=== PATIENT | male | born 1960 | race Caucasian/White ===

== ENCOUNTER 2017-06-25 14:07 | Emergency (ER) | payer SELFPAY ==
[2017-06-25 14:21] VITALS: BP 168/106
--- NOTE | 2017-06-25 15:08 | ER Document Report ---
ED Medical Screen (RME) - General Chief Complaint: Flu Symptoms Stated Complaint: WEAKNESS Time Seen by Provider: 06/25/17 14:56 Mode of Arrival: Ambulatory Information source: Patient - pt states he feels very weak. Denies CP, N,V TRAVEL OUTSIDE OF THE [place] IN LAST 30 DAYS: No - Related Data Allergies/Adverse Reactions: No Known Allergies Allergy (Verified 06/19/15 03:35) Past Medical History - Social History Chew tobacco use (# tins/day): No Frequency of alcohol use: None Drug Abuse: None - Past Medical History Cardiac Medical History: Reports: Hx Hypertension Endocrine Medical History: Reports: Hx Diabetes Mellitus Type 2 Renal/ Medical History: Denies: Hx Peritoneal Dialysis Past Surgical History: Reports: Hx Appendectomy - Immunizations Hx Diphtheria, Pertussis, Tetanus Vaccination: Yes Physical Exam - Vital signs Vitals: Temp Pulse Resp BP Pulse Ox 98.4 F 107 H 16 168/106 H 98 06/25/17 14:20 06/25/17 14:20 06/25/17 14:20 06/25/17 14:20 06/25/17 14:20 Course - Vital Signs Vital signs: Temp Pulse Resp BP Pulse Ox 98.4 F 107 H 16 168/106 H 98 06/25/17 14:20 06/25/17 14:20 06/25/17 14:20 06/25/17 14:20 06/25/17 14:20
== END 2017-06-25 16:28 | disposition left against medical advice (07) ==
LOC: ER 14:07
DX: Z53.21 Procedure and treatment not carried out due to patient leaving prior to being seen by health care provider (principal); R53.1 Weakness
CPT/HCPCS: 99281

== ENCOUNTER 2018-03-25 20:16 | Emergency (ER) | payer SELFPAY ==
--- NOTE | 2018-03-25 20:39 | ER Document Report ---
ED General - General Stated Complaint: POSSIBLE BLOOD SUGAR ISSUE Time Seen by Provider: 03/25/18 20:38 Notes: Patient is a 57-year-old male that presents to the emergency department for chief complaint of high blood sugar, and passing out. Patient states that he was drinking this evening, and had passed out, and his girlfriend called EMS. He states he has been feeling lightheaded, denies having any head injury. He thinks this is all related to his blood sugars being out of control, he has not had his medications, he states that some of the dumped them out, he is not sure who. Patient is a poor historian, and is currently visibly intoxicated. He states he takes metformin, as well as lisinopril. He is not currently on insulin. He also complains of having some numbness in his hand, that has been present for approximately 1 month, as well as in his leg, which he states is on the outside which has been there for several months. He denies having any pain associated with this. Denies any facial droop, slurred speech. These appear to be chronic things, but he wanted to mention them during his visit. He denies having any recent fevers, chills, night sweats, chest pain, polyuria, polydipsia, nausea, vomiting or abdominal pain. Past Medical History: Diabetes mellitus, osteoarthritis, hypertension Past Surgical History: Denies major surgical history Social History: Admits to smoking cigarettes daily, states that he has been off of alcohol for some time, but decided to drink this evening, denies illicit drug use. Family History: Reviewed and noncontributory for presenting illness Allergies: Reviewed, see documented allergy list. REVIEW OF SYSTEMS: Other than noted above, the 12 point review of systems was reviewed with the patient and were negative, all pertinent findings are included in the HPI. PHYSICAL EXAMINATION: Vital signs reviewed, nursing noted reviewed. GENERAL: Patient is visibly intoxicated, but cooperative HEAD: Atraumatic, normocephalic. EYES: Eyes appear normal, extraocular movements intact, sclera anicteric, conjunctiva are normal. ENT: nares patent, oropharynx clear without exudates. Moist mucous membranes. NECK: Normal range of motion, supple without lymphadenopathy LUNGS: Breath sounds clear to auscultation bilaterally and equal. No wheezes rales or rhonchi. HEART: Regular rate and rhythm without murmurs ABDOMEN: Soft, nontender, normoactive bowel sounds. No rebound, guarding, or rigidity. No masses appreciated. EXTREMITIES: Nontender, good range of motion, no pitting or edema. NEUROLOGICAL: Moves all extremities spontaneously Motor and sensory grossly intact on exam. Reflexes intact in the lower extremities in the patellar and Achilles tendon, +2/4 bilaterally and equal. Sensation tested, with sharp touch , and equal bilaterally, there is some subjective decreased sensation on the outside of the left leg compared to the right, with light touch, but has the same sensation and equal bilaterally in the medial aspects of the lower extremities. There is no sensation discrepancies in the upper extremities. PSYCH: Normal mood, normal affect. SKIN: Warm, Dry, normal turgor, no rashes or lesions noted on exposed skin TRAVEL OUTSIDE OF THE [place] IN LAST 30 DAYS: No - Related Data Allergies/Adverse Reactions: No Known Allergies Allergy (Verified 06/19/15 03:35) Past Medical History - Social History Smoking Status: Current Every Day Smoker Family History: Reviewed & Not Pertinent - Past Medical History Cardiac Medical History: Reports: Hx Hypertension Endocrine Medical History: Reports: Hx Diabetes Mellitus Type 2 Renal/ Medical History: Denies: Hx Peritoneal Dialysis Past Surgical History: Reports: Hx Appendectomy - Immunizations Hx Diphtheria, Pertussis, Tetanus Vaccination: Yes Physical Exam - Vital signs Vitals: Temp Pulse Resp BP Pulse Ox 98.1 F 97 18 144/95 H 98 03/25/18 20:40 03/25/18 20:40 03/25/18 20:40 03/25/18 20:40 03/25/18 20:40 Course - Re-evaluation Re-evalutation: Patient seen and examined vital signs reviewed. Laboratory data and imaging were ordered as appropriate for the patient's presenting symptoms and complaint, with consideration of any critical or life threatening conditions that may be associated with their obtained history and exam as noted above. Patient was treated with IV fluids, his Accu-Chek was 312, on blood work 349 Results were reviewed when available and demonstrated rest the patient's blood work was unremarkable, alcohol level was ordered, patient is with family that can provide him with a ride home. Alcohol is 224, which is not consistent with the amount of alcohol that the patient states he consumed, which was only 4 shots of liquor. This is most likely explaining most of the patient's symptoms , and while he had passed out. He did not have a syncopal episode. The patient was re-evaluated and was stable, do not feel the patient is in need of insulin at this time, but he does need to be resumed on his metformin, which will provide him a prescription for, as well as his lisinopril for 2 weeks, and advised to follow-up with his primary care physician. Patient's paresthesias seem more consistent with peripheral nerve issues, he has had issues with his ulnar nerve in the past, he also has carpal tunnel in the left hand. His paresthesias in the left upper extremity, start at the elbow and extend into the fourth and fifth digits. Similarly in the left lower extremity, and follows a dermatomal pattern, as opposed to the entire left lower extremity. More consistent with a peripheral nerve issue, and he has been having these symptoms for months. Evaluation was most consistent with alcohol intoxication, paresthesias, hyperglycemia Results were discussed with the patient at this point, after careful consideration I feel that that patient can be discharged from the emergency department, the patient was educated treatments and reasons to return to the emergency department based on their presumed diagnosis as noted above, they were advised to followup with a primary care physician in 2-3 days. Patient was agreeable to plan of care. *Note is created using voice recognition software and may contain spelling, syntax or grammatical errors. Laboratory 03/25/18 03/25/18 03/25/18 20:26 20:26 20:26 WBC 5.7 RBC 4.53 Hgb 14.2 Hct 42.1 MCV 93 MCH 31.4 MCHC 33.7 RDW 12.8 Plt Count 218 Seg Neutrophils % 47.2 Lymphocytes % 39.4 Monocytes % 6.2 Eosinophils % 6.4 H Basophils % 0.8 Absolute Neutrophils 2.7 Absolute Lymphocytes 2.2 Absolute Monocytes 0.4 Absolute Eosinophils 0.4 Absolute Basophils 0.0 Sodium 142.0 Potassium 4.2 Chloride 103 Carbon Dioxide 23 Anion Gap 16 BUN 17 Creatinine 1.07 Est GFR ( Amer) > 60 Est GFR (Non-Af Amer) > 60 Glucose 349 H POC Glucose Calcium 9.3 Total Bilirubin 0.3 Direct Bilirubin 0.3 Neonat Total Bilirubin Not Reportable Neonat Direct Bilirubin Not Reportable Neonat Indirect Bili Not Reportable AST 28 ALT 14 L Alkaline Phosphatase 62 Troponin I < 0.012 Total Protein 7.6 Albumin 4.3 03/25/18 20:34 WBC RBC Hgb Hct MCV MCH MCHC RDW Plt Count Seg Neutrophils % Lymphocytes % Monocytes % Eosinophils % Basophils % Absolute Neutrophils Absolute Lymphocytes Absolute Monocytes Absolute Eosinophils Absolute Basophils Sodium Potassium Chloride Carbon Dioxide Anion Gap BUN Creatinine Est GFR ( Amer) Est GFR (Non-Af Amer) Glucose POC Glucose 312 H Calcium Total Bilirubin Direct Bilirubin Neonat Total Bilirubin Neonat Direct Bilirubin Neonat Indirect Bili AST ALT Alkaline Phosphatase Troponin I Total Protein Albumin Chest X-Ray 03/25/18 21:34 IMPRESSION: No acute cardiopulmonary abnormality. - Vital Signs Vital signs: Temp Pulse Resp BP Pulse Ox 98.1 F 97 18 144/95 H 98 03/25/18 20:40 03/25/18 20:40 03/25/18 20:40 03/25/18 20:40 03/25/18 20:40 - Laboratory Result Diagrams: 03/25/18 20:26 03/25/18 20:26 Laboratory results interpreted by me: 03/25/18 03/25/18 03/25/18 20:26 20:26 20:34 Eosinophils % 6.4 H Glucose 349 H POC Glucose 312 H ALT 14 L Discharge - Discharge Clinical Impression: Hyperglycemia, Paresthesia Alcohol intoxication Qualifiers: Complication of substance-induced condition: uncomplicated Qualified Code(s): F10.920 - Alcohol use, unspecified with intoxication, uncomplicated Condition: Stable Disposition: HOME, SELF-CARE Instructions: Hyperglycemia ([facility]) Additional Instructions: Please return to the emergency department if you have any worsening, or concern of your symptoms. Please return to the emergency department if you develop chest pain, difficulty breathing, severe abdominal pain, or ongoing vomiting. Please follow-up with your primary care physician in 2-3 days and any other recommended physicians. If prescribed, take all medications as directed. If you have any questions or concerns do not hesitate to return the emergency department for evaluation. Prescriptions: Lisinopril [Prinivil] 10 mg PO DAILY #15 tablet Metformin HCl 1,000 mg PO BID #30 tablet Referrals: [facility] [Provider Group] - Follow up in 3-5 days [facility] [Provider Group] - Follow up in 3-5 days
[2018-03-25] MEDS ORDERED: NORMAL SALINE 1000 ML 1,000 ML IV ONE (21:35)
[2018-03-25 21:40] LABS: ABSOLUTE EOSINOPHILS # (AUTO) 0.4 10^3/uL (0.0-0.6); ABSOLUTE LYMPHOCYTES (AUTO) 2.2 10^3/uL (0.5-4.7); ABSOLUTE MONOCYTES (AUTO) 0.4 10^3/uL (0.1-1.4); ABSOLUTE NEUT (AUTO) 2.7 10^3/uL (1.7-8.2); BASOPHILS % (AUTO) 0.8 % (0-2); EOSINOPHILS % (AUTO) 6.4 % (0-6); HEMATOCRIT 42.1 % (37.9-51.0); HEMOGLOBIN 14.2 g/dL (13.5-17.0); LYMPHOCYTES % (AUTO) 39.4 % (13-45); MEAN CORPUSCULAR HEMOGLOBIN 31.4 pg (27.0-33.4); MEAN CORPUSCULAR HGB CONC 33.7 g/dL (32.0-36.0); MEAN CORPUSCULAR VOLUME 93 fl (80-97); MONOCYTES % (AUTO) 6.2 % (3-13); PLATELET COUNT 218 10^3/uL (150-450); RED BLOOD COUNT 4.53 10^6/uL (4.35-5.55); RED CELL DISTRIBUTION WIDTH 12.8 % (11.5-14.0); SEGMENTED NEUTROPHILS % (AUTO) 47.2 % (42-78); TOTAL CELLS COUNTED % (AUTO) 100 %; WHITE BLOOD COUNT 5.7 10^3/uL (4.0-10.5)
[2018-03-25 21:47] LABS: ALANINE AMINOTRANSFERASE 14 U/L (21-72); ALBUMIN 4.3 g/dL (3.5-5.0); ALKALINE PHOSPHATASE 62 U/L (38-126); ANION GAP 16 (5-19); ASPARTATE AMINO TRANSFERASE 28 U/L (17-59); BILIRUBIN,DIRECT 0.3 mg/dL (0.0-0.4); BILIRUBIN,TOTAL 0.3 mg/dL (0.2-1.3); BLOOD UREA NITROGEN 17 mg/dL (7-20); CALCIUM 9.3 mg/dL (8.4-10.2); CARBON DIOXIDE 23 mmol/L (22-30); CHLORIDE 103 mmol/L (98-107); GLUCOSE 349 mg/dL (75-110); POTASSIUM 4.2 mmol/L (3.6-5.0); TOTAL PROTEIN 7.6 g/dL (6.3-8.2)
--- NOTE | 2018-03-25 22:30 | RADIOLOGY REPORT (SQ) ---
XR CHEST 1 VIEW HISTORY: syncope. COMPARISON: None. FINDINGS: Normal cardiomediastinal silhouette. Lungs are clear. No pleural effusion or pneumothorax is seen. No acute osseous findings. IMPRESSION: No acute cardiopulmonary abnormality.
[2018-03-25] MEDS ORDERED: METFORMIN HCL 500 MG TABLET PO ONE (22:41)
[2018-03-26 00:54] VITALS: BP 152/70
--- NOTE | 2018-03-26 09:58 | EKG REPORT ---
SEVERITY:- ABNORMAL ECG - SINUS RHYTHM PROBABLE INFERIOR INFARCT, AGE INDETERMINATE : Confirmed by: Connor York MD 26-Mar-2018 09:57:24
== END 2018-03-25 23:50 | disposition home or self-care (01) ==
LOC: ER 20:16
DX: E11.65 Type 2 diabetes mellitus with hyperglycemia (principal); R20.2 Paresthesia of skin; F10.129 Alcohol abuse with intoxication, unspecified; F17.210 Nicotine dependence, cigarettes, uncomplicated; Y90.7 Blood alcohol level of 200-239 mg/100 ml; Z79.84 Long term (current) use of oral hypoglycemic drugs
CPT/HCPCS: 93005; 99285; 96360; 36415; 82962; 80307; 85025; 80053; 84484; 71045; 93010; J7030